=== PATIENT | male | born 1990 | race Caucasian/White ===

== ENCOUNTER 2019-05-14 11:32 | Emergency (ER) | payer BC ==
[2019-05-14] MEDS ORDERED: Bacitracin Oint 1 GM U/D Packet TOP ONE (12:07)
--- NOTE | 2019-05-14 12:12 | EDM.PDOC ---
ED HPI GENERAL MEDICAL PROBLEM - General Chief Complaint: Skin Complaint Stated Complaint: CUT LEFT UPPER ARM Time Seen by Provider: 05/14/19 12:00 Source of Information: Reports: Patient History Limitations: Reports: No Limitations - History of Present Illness INITIAL COMMENTS - FREE TEXT/NARRATIVE: 28 yo male here with a laceration to his L lateral arm from about 4 pm yesterday. Decided to come now due to drainage from the wound. Injured when [place]. Is UTD on tetanus per his report. Onset: Sudden Onset Date: 05/13/19 Onset Time: 16:00 Duration: Hour(s):, Constant Location: Reports: Upper Extremity, Left Quality: Reports: Burning Severity: Mild Improves with: Reports: None Worsens with: Reports: None Context: Reports: Trauma Associated Symptoms: Reports: No Other Symptoms Treatments [employer]INE[employer]ING: Reports: Other (see below) (bandage) ED ROS GENERAL - Review of Systems Review Of Systems: See Below Skin: Reports: Wound (L lateral arm) Neurological: Reports: No Symptoms ED EXAM, SKIN/RASH Exam: See Below Exam Limited By: No Limitations General Appearance: Alert, WD/WN, No Apparent Distress Extremities: Other (wound to L lateral arm) Neurological: Alert, Oriented, CN II-XII Intact, Normal Cognition, No Motor/ Sensory Deficits Psychiatric: Normal Affect, Normal Mood Skin: Warm, Dry, Normal Color, No Rash, Wound/Incision (L lateral arm laceration , no sign of infection currently.) Location, Skin: Upper Extremity, Left Characteristics: Linear Associated features: No: Warmth, Lymphangitis ED SKIN PROCEDURES - Laceration/Wound Repair Left Lateral Arm Lac/Wound length In cm: 2.6 Appearance: Subcutaneous, Linear, Clean Distal NVT: Neuro & Vascular Intact Anesthetic Type: Local Local Anesthesia - Lidocaine (Xylocaine): 1% Plain Local Anesthetic Volume: 5cc Skin Prep: Saline Saline Irrigation (cc's): 45 Exploration/Debridement/Repair: Wound Explored Closed with: Sutures Suture Size: 5-0 # of Sutures: 6 Suture Type: Nylon, Interrupted, Simple Drain Placement: No Sterile Dressing Applied: Nurse Tetanus Status Addressed: Yes Complications: No Course - Vital Signs Last Recorded V/S: Last Vital Signs Temp 35.7 C 05/14/19 11:59 Pulse 78 05/14/19 11:59 Resp 13 05/14/19 11:59 BP 128/71 05/14/19 11:59 Pulse Ox 98 05/14/19 11:59 - Orders/Labs/Meds Orders: Active Orders 24 hr Category Date Time Status Bacitracin [Bacitracin Oint 1 GM] Med 05/14/19 12:07 Once 1 dose TOP ONETIME ONE Lidocaine 1% [Xylocaine-MPF 1%] Med 05/14/19 12:06 Once 5 ml INJECT ONETIME ONE Departure - Departure Time of Disposition: 12:40 Disposition: Home, Self-Care 01 Condition: Good Clinical Impression: Arm laceration Qualifiers: Encounter type: initial encounter Laterality: left Qualified Code(s): S41.112A - Laceration without foreign body of left upper arm, initial encounter - Discharge Information *PRESCRIPTION DRUG MONITORING PROGRAM REVIEWED*: No *COPY OF PRESCRIPTION DRUG MONITORING REPORT IN PATIENT REYNOLD: No Instructions: Laceration Care, Adult, [id number] Referrals: PCP,None [Primary Care Provider] - Forms: ED Department Discharge Additional Instructions: Clean wound twice daily with soap and water. Dry. Apply antibiotic ointment and a new dressing. Wound check in clinic in 2 days. Stitches out in 9 days. - My Orders Last 24 Hours: My Active Orders 05/14/19 12:06 Lidocaine 1% [Xylocaine-MPF 1%] 5 ml INJECT ONETIME ONE 05/14/19 12:07 Bacitracin [Bacitracin Oint 1 GM] 1 dose TOP ONETIME ONE - Assessment/Plan Last 24 Hours: My Active Orders 05/14/19 12:06 Lidocaine 1% [Xylocaine-MPF 1%] 5 ml INJECT ONETIME ONE 05/14/19 12:07 Bacitracin [Bacitracin Oint 1 GM] 1 dose TOP ONETIME ONE
== END 2019-05-14 12:49 | disposition home or self-care (01) ==
LOC: JP.ED 11:32
DX: S41.112A Laceration without foreign body of left upper arm, initial encounter (principal); W26.8XXA Contact with other sharp object(s), not elsewhere classified, initial encounter
CPT/HCPCS: 12002; 99282; J2001